=== PATIENT | male | born 1995 | race African-American/Black ===

== ENCOUNTER 2021-09-29 17:26 | Emergency (ER) | payer OTHER | END 2021-09-29 20:50 | disposition home or self-care (01) | LOC: CSHERS 17:26 | DX: J02.9 Acute pharyngitis, unspecified (principal); F84.0 Autistic disorder | CPT/HCPCS: 87081; 87430; 99282 ==

== ENCOUNTER 2022-02-20 10:28 | Outpatient (CLI) | payer OTHER | END 2022-02-20 10:29 | disposition home or self-care (01) | LOC: CSHULT 10:28 | PROVIDERS: ATTEND Family Medicine | DX: R10.10 Upper abdominal pain, unspecified (principal); K82.9 Disease of gallbladder, unspecified; N28.1 Cyst of kidney, acquired | CPT/HCPCS: 76700 ==

== ENCOUNTER 2022-12-24 11:02 | Outpatient (CLI) | payer OTHER | END 2022-12-24 11:03 | disposition home or self-care (01) | LOC: CSHULT 11:02 | PROVIDERS: ATTEND Physician Assistant Medical | DX: R17 Unspecified jaundice (principal); R10.10 Upper abdominal pain, unspecified; K82.8 Other specified diseases of gallbladder | CPT/HCPCS: 76705 ==